=== PATIENT | male | born 1955 | race Caucasian/White ===

== ENCOUNTER 2022-07-22 10:51 | Emergency (ER) | payer MEDICARE, OTHER ==
[~2022-07-22] VITALS: Wt 91.2 kg
--- OUTSIDE RECORDS SUMMARY | 2022-07-22 10:58 | XMS ---
PreManage Notification: OLIVER JOSEPH Security Human Resources Leader Events No recent Security Events currently on file CRITERIA MET - 6 ED Visits in 6 Months - [facility] - 2 Visits in 30 Days CARE PROVIDERS COLBY HERNANDEZ [facility] Current PHONE: Unknown DOUGLAS STUART Internal Medicine: Hematology Current PHONE: [phone] Alejandra has no Care Guidelines for this patient. Franki VISIT COUNT (12 MO.) Carol Kerr [address] [place] [address] TOTAL 9 NOTE: Visits indicate total known visits. 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 - Malignant neoplasm of tongue, unspecified - Coughing Up Blood - Trach Complication - Tracheostomy (Tube) Evaluation 06/18/2022 10:02 Kt [facility] TYPE: Emergency DIAGNOSES: - Unspecified tracheostomy complication - Unspecified tracheostomy complication - Neck Swelling 06/12/2022 23:35 Kt [facility] TYPE: Emergency DIAGNOSES: - Unspecified tracheostomy complication - Follow-Up Medical - Tracheostomy (Tube) Evaluation 05/25/2022 12:49 Kt [facility] TYPE: Emergency DIAGNOSES: - Cellulitis of face - Medical Follow Up 12/31/2021 09:09 Kt [facility] TYPE: Emergency DIAGNOSES: - Feeding Tube Displacement INPATIENT VISIT TRACKING (12 MO.) 06/29/2022 00:23 Kt [facility] TYPE: Inpatient DIAGNOSES: - Enterocolitis due to Clostridium difficile, not specified as recurrent - 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
[2022-07-22 13:09] VITALS: BP 120/78
== END 2022-07-22 13:11 | disposition home or self-care (01) ==
LOC: ED 10:51
DX: C76.0 Malignant neoplasm of head, face and neck (principal)
CPT/HCPCS: 36415; 71045; 80053; 85025; 96374; 99283-25; J1100; J7030; J7510